=== PATIENT | female | born 1955 | race Hispanic/Latino ===

== ENCOUNTER 2018-06-01 14:34 | Outpatient (CLI) | payer MEDICARE ==
--- NOTE | 2018-06-02 08:22 | Mammography Report ---
BONE DEXA:06/01/18 14:34:00 CLINICAL: Postmenopausal. No comparison. TECHNIQUE: Two site bone DEXA performed on an Hologic scanner. FINDINGS: The average BMD of the lumbar spine L1-L4 is 1.188g/cm squared with a T-score of +1.3 and a Z-score of +3.1. The average BMD of the left hip is 0.961g/cm squared with a T-score of +0.2 and a Z-score of +1.4. IMPRESSION: WHO classification: Normal with average fracture risk based on both spine and left hip measurements. RECOMMENDATION: Clinical correlation and routine screening. DEFINITIONS: BMD = Bone Mineral Density T-score = BMD related to mean peak bone mass of young adult (mean expressed in Standard Deviation) Z-score = Age matched BMD expressed in SD World Health Organization (WHO) Diagnostic Criteria Normal T-score > -1 SD Osteopenia T-score between -1 and -2.4 SD Osteoporosis T-score -2.5 SD or below NOTE: BMD is not the only risk factor for fracture. One should also consider factors such as the patient's age, risk of falling, previous osteoporotic fracture, family history of osteoporotic fractures, current smoker, and low body weight. Z-scores are not calculated if >80 years of age.
--- NOTE | 2018-06-02 08:24 | Mammography Report ---
BILATERAL DIGITAL SCREENING MAMMOGRAM with CAD: 06/01/18 14:34:00 CLINICAL: Routine screening. COMPARISON:09/06/14 right mammogram FINDINGS: The breasts are almost entirely fatty.Mild bilateral arterial calcifications. No mass, architectural distortion or suspicious calcifications. IMPRESSION: No mammographic evidence of malignancy. BI-RADS CATEGORY: 2 -- Benign RECOMMENDATION: Routine mammographic screening in one year. COMMENT: Patient follow-up letters are generated by our [employer] application.
== END 2018-06-01 14:35 | disposition home or self-care (01) ==
LOC: SPVWC 14:34
PROVIDERS: ATTEND Family Medicine
DX: Z12.31 Encounter for screening mammogram for malignant neoplasm of breast (principal); Z78.0 Asymptomatic menopausal state
CPT/HCPCS: 77067; 77080

== ENCOUNTER 2021-04-24 09:16 | Outpatient (CLI) | payer MEDICARE ==
--- NOTE | 2021-04-24 13:17 | Mammography Report ---
DEXA BONE DENSITY SCAN INDICATION: SCREENING FOR OSTEOPOROSIS Z13.821. COMPARISON: None available. LUMBAR SPINE (L1-L4): Bone mineral density (BMD) is 1.188 g/cm2. T-score is 1.3 (standard deviations of Young Adult mean). Z-score is 3.3 (standard deviations of Age Matched mean). LEFT FEMORAL NECK: Bone mineral density (BMD) is 0.920 g/cm2. T-score is 0.6 (standard deviations of Young Adult mean). Z-score is 2.3 (standard deviations of Age Matched mean). IMPRESSION: 1. WHO Classification: Normal bone density. Fracture Risk: Not Increased. Signer Name: Rito Horowitz MD Signed: 04/24/2021 1:11 PM Workstation Name: [email or web address]
--- NOTE | 2021-04-25 14:13 | Mammography Report ---
DIGITAL SCREENING MAMMOGRAM WITH CAD, 04/24/2021 CLINICAL INFORMATION / INDICATION: Routine screening mammography. TECHNIQUE: Digital bilateral 2D mammography was obtained in the craniocaudal and mediolateral obliqu e projections. This examination was interpreted with the benefit of Computer-Aided Detection analysis . COMPARISON: 06/01/2018. FINDINGS: Breast Density: There are scattered areas of fibroglandular density. No dominant mass, suspicious calcifications, or architectural distortion in either breast. There has been no significant interval change. IMPRESSION: No mammographic evidence of malignancy. Follow up recommendation: Routine yearly BI-RADS Category 1: NEGATIVE A "normal" or negative report should not discourage follow up or biopsy of a clinically significant f inding. A written summary of these findings will be mailed to the patient. The patient will be entered into a mammography reporting system which will generate a reminder letter for the patient's next appointmen t at the appropriate interval. The [employer] recommends yearly mammograms starting at age 40 and continuing as l leigh as a woman is in good health. Breast MRI is recommended for women with an approximate 20-25% or greater lifetime risk of breast cancer, including women with a strong family history of breast or ova yandel cancer or who have been treated for Hodgkin's disease. Signer Name: Barb Rosenthal MD Signed: 04/25/2021 2:09 PM Workstation Name: [id number]
== END 2021-04-24 09:17 | disposition home or self-care (01) ==
LOC: SPVWC 09:16
PROVIDERS: ATTEND Physician Assistant
DX: Z12.31 Encounter for screening mammogram for malignant neoplasm of breast (principal); Z78.0 Asymptomatic menopausal state
CPT/HCPCS: 77067; 77080